=== PATIENT | female | born 1980 | race Caucasian/White ===

== ENCOUNTER 2018-08-26 12:37 | Emergency (ER) | payer SELFPAY ==
[2018-08-26 12:44] VITALS: BP 114/82
--- NOTE | 2018-08-26 12:59 | EDPHY ---
H & P Time Seen by Provider: 08/26/18 12:48 HPI/ROS: Clinical Impression: Lip laceration with foreign body Assessment/Plan: 37-year-old female presents to the emergency department with a laceration to the upper lip after her cat scratched her lip. Patient found to have a portion of the cats clot in her laceration which was removed. No further foreign body identified on my exam. Tetanus up-to-date. Wound repaired as per chart notes. Wound care discussed, signs and symptoms of infection reviewed, warning signs to return to ER sooner on discharge. Differential Dx: Foreign body, laceration, deep neurovascular injury ED Procedures: Laceration Repair Verbal consent obtained by patient. Risks discussed, including but not limited to infection, pain, retained foreign body, need for additional repair, poor cosmetic result, tendon damage, nerve damage, poor wound healing, vascular damage. Alternatives to repair discussed. [place] protocol used to establish correct patient, procedure, equipment, ict support engineer, and site. Anesthesia obtained by local infiltration. Anesthetized with 1% lidocaine without epi. Laceration location right upper lip , length is 1 cm, depth 2 mm, Repair type simple. Patient was prepped and draped in usual sterile fashion. Hemostasis achieved with direct pressure. Wound explored through full range of motion and entire depth of wound probed and visualized with gloved finger. No suspicion for nerve damage, tendon damage, underlying fracture, vascular damage, foreign body, or contamination. Area was cleansed with Shur-Clens and irrigated with sterile saline as per protocol. No foreign body or material removed. Repair method 6-0 Prolene. Five. Well aligned, closely approximated. wound was dressed with antibiotic ointment. Patient tolerated well with no immediate complications. Wound care: Clean and dry x 24 hours, gently clean with soap and water, cover with topical antibiotic ointment/bandage. Suture/Staple removal: 5 Days ED Course: Chief Complaint: Lip laceration HPI: This is a 37-year-old female presents to the emergency department after her cat scratched her upper lip while trying to get away from a dog. Patient was not bitten. This is her cat and is up-to-date on vaccines. Tetanus up-to-date. No other injuries PMH: Noncontributory ROS: All other systems negative Constitutional: No fever, no chills, appetite change. Musculoskeletal: No back pain, joint swelling, joint pain, myalgias. Skin: No rashes, color change. Physical Exam: General Appearance: Alert, oriented, appropriate, cooperative, NAD, well hydrated, non-toxic appearing, VSS, no hypoxia. Skin: Warm, dry, no rashes, no nodules on palpation, 1 cm laceration to right upper lip involving the vermilion border. No through and through laceration. A portion of the cats clot was removed from the laceration MDM: Patient was seen independently by established practice protocols. Secondary supervising physician at time of evaluation was Dr. Grimm. Diagnosis: Upper lip laceration with foreign body. New, requires workup Risk of comlications, morbidity, mortality: Presenting problem low Diagnostic procedures low Management Options low Patient Progress: Improved. Smoking Status: Never smoked Constitutional: Initial Vital Signs Temperature (C) 36.9 C 08/26/18 12:41 Heart Rate 68 08/26/18 12:41 Respiratory Rate 17 08/26/18 12:41 Blood Pressure 114/82 H 08/26/18 12:41 O2 Sat (%) 96 08/26/18 12:41 O2 Delivery Mode Room Air Allergies/Adverse Reactions: ciprofloxacin [From Cipro] Allergy (Verified 08/26/18 12:41) Home Medications: Medication Instructions Recorded Herbal Hormonal Therapy For Cysts 05/05/15 MDM/Departure - MDM Medications Given: Discontinued Medications Diphtheria/Tetanus/Acell Pertussis (Boostrix) 0.5 ml IM .ONCE ONE Stop: 08/26/18 13:13 Last Admin: 08/26/18 13:15 Dose: 0.5 ml - Depart Disposition: Home, Routine, Self-Care Clinical Impression: Lip laceration Qualifiers: Encounter type: initial encounter Qualified Code(s): S01.511A - Laceration without foreign body of lip, initial encounter Foreign body in lip Qualifiers: Encounter type: initial encounter Qualified Code(s): S00.551A - Superficial foreign body of lip, initial encounter Condition: Good Instructions: Laceration (ED) Additional Instructions: Please have sutures/harry removed in 5 Days. You can return to the emergency department or your primary care for suture/staple removal. Avoid submerging sutures/harry underwater for prolonged period of time until removed. Keep wound clean and dry, cover with antibiotic ointment and Band-Aid. Return to emergency department for redness, swelling, discharge, warmth to the skin, or any other concerns for infection. Referrals: [facility],. [Clinic] - As per Instructions
[2018-08-26] MEDS ORDERED: TDAP ADULT 0.5 ML INJ (BOOSTRIX) IM ONE (13:12)
== END 2018-08-26 14:01 | disposition home or self-care (01) ==
PROC: 0CQ0XZZ Repair Upper Lip, External Approach (ICD-10-PCS; principal; 2018-08-26)
DX: S01.511A Laceration without foreign body of lip, initial encounter (principal); S00.551A Superficial foreign body of lip, initial encounter; W55.03XA Scratched by cat, initial encounter; Y92.9 Unspecified place or not applicable; Y93.9 Activity, unspecified; Y99.9 Unspecified external cause status